=== PATIENT | male | born 1970 | race Caucasian/White ===

== ENCOUNTER 2018-12-02 08:11 | Emergency (ER) | payer MEDICAID ==
[~2018-12-02] VITALS: Ht 172.7 cm; Wt 90.4 kg
[2018-12-02 08:18] VITALS: BP 162/98; PULSE 89; RESP 18; Ht 172.7 cm; Wt 90.4 kg
--- NOTE | 2018-12-02 09:57 | ERD ---
ER Documentation Chief Complaint Chief Complaint DIZZINESS SINCE YESTERDAY HPI 48-year-old male patient with no significant past medical history presents to the ED complaining of dizziness. Patient reports that he is unable to describe his dizziness. States that he wears reading glasses. States that the dizziness is not related to all movements. Reports that he noticed that his blood pressure is slightly higher. States that he has been eating more salty foods. Denies any nausea, vomiting, diarrhea, chest pain, shortness of breath, dyspnea on exertion, orthopnea, wheezing. ROS All systems reviewed and are negative except as per history of present illness. PMhx/Soc Medical and Surgical Hx: pt denies Medical Hx, pt denies Surgical Hx Hx Alcohol Use: No Hx Substance Use: No Hx Tobacco Use: No Smoking Status: Never smoker FmHx Family History: No diabetes, No coronary disease Physical Exam Vitals Vital Signs Date Temp Pulse Resp B/P (MAP) Pulse Ox O2 O2 Flow FiO2 Time Delivery Rate 12/02/18 97.9 89 18 162/98 99 08:18 (119) Physical Exam Const: Hqw-qib-bywbmghnv, well-nourished. In no acute distress. Head: Atraumatic, normocephalic. No hematoma. No eaton sign. Eyes: Normal Conjunctiva without injection. No purulent discharge. PERRLA. EOMI ENT: Normal external ear. Ear canal without erythema. Tympanic membrane pearly gill without effusion or bulging. Nasal canal clear with normal turbinates. Moist oropharynx without tonsillar exudates. Non-erythematous pharynx. Uvula midline. No drooling. No trismus. Neck: No cervical midline tenderness. Full range of motion. No meningismus. No cervical lymphadenopathy. No JVD. Resp: Clear to auscultation bilaterally. No wheezing, rhonchi, rales, or crackles. No accessory muscle use. No retractions. Cardio: Regular rate and rhythm. No murmurs, rubs or gallops. Abd: Soft, non tender, non distended. Normal bowel sounds. No palpable masses. No rebound tenderness. No guarding. Negative McBurney's Point. Negative Palomo 's Sign. Skin: Normal skin turgor. No petechiae or rashes Back: No midline tenderness. No CVA tenderness. Ext: No cyanosis, or edema. Distal pulses intact bilaterally. Neur: Awake and alert. Normal gait. Normal coordination. Cranial Nerves II- VII intact. Normal finger to nose. Muscle strength 5/5. Sensation intact. Psych: Normal Mood and Affect Results 24 hrs Laboratory Tests Test 12/02/18 09:07 Bedside Glucose 136 mg/dL Procedures/MDM 48--year-old male patient with no significant past medical history presents to ED complaining of dizziness. Patient is afebrile and nontoxic-appearing. Patient's blood pressure is 162/98. Blood Pressure Assessment: Patient's blood pressure was elevated (>120/80) but appears stable without evidence of hypertension emergency or urgency. The patient was counseled about the risks of hypertension and urged to pursue outpatient monitoring and therapy within a week with their primary care physician. Accu-Chek 136. EKG reviewed and interpreted by Dr. Kumari Rate/Rhythm: [70 bpm, Normal Sinus Rhythm] No ectopy, no ST elevations, normal axis. QRS, ST, T-waves: [No changes consistent w/ acute ischemia] Impression: [No evidence of ischemia or arrhythmia] Low suspicion for acute myocardial infarction, esophageal rupture, pneumothorax, pneumonia, cardiac tamponade, Rpzkl-Sfygfgtse-Awgis Syndrome, Brugada Syndrome, pulmonary embolism, AAA, aortic dissection, carotid dissection, thoracic aortic dissection, endocarditis, myocarditis, pericarditis, cocaine-related ischemia, Boerhaave's syndrome, cardiac dysrhythmias,meningitis, intracranial bleed, seizure, stroke, TIA or other emergent conditions. Diagnosis: Dizziness Follow up with primary care physician in 1-2 days for management of HTN. Instructed patient to return to the ED sooner for any worsening symptoms. Patient's questions were answered. Patient is hemodynamically stable. Patient understood and agreed with discharge plan. Patient discharged stable. Disclaimer: Inadvertent spelling and grammatical errors are likely due to EHR/dictation software use and do not reflect on the overall quality of patient care. Also, please note that the electronic time recorded on this note does not necessarily reflect the actual time of the patient encounter. Departure Diagnosis: Primary Impression: Dizziness Condition: Stable Patient Instructions: High Blood Pressure (Hypertension), Eating a Low-Salt Diet, Dizziness, Unk Cause Referrals: [facility] Usted se muniz hecho un examen mdico de control que le indica que no est en charity condicin que requiera tratamiento urgente en el Departamento de Emergencia. Un estudio ms profundo y el tratamiento de dennis condicin pueden esperar sin ningn riesgo hasta que usted sea atendida/o en el consultorio de dennis mdico o charity clnica. Es responsabilidad suya arreglar charity dante para el seguimiento del eloise. MANEJO DE CONDICIONES NO URGENTES EN EL FUTURO 1) Si usted tiene un mdico de atencin primaria: Usted debera llamar a dennis mdico de atencin primaria antes de venir al departamento de emergencia. Despus de las horas de consultorio, dennis doctor o dennis asociado/a est disponible por telfono. El mdico o enfermero de malachi en el servicio telefnico puede asesorarle por bakari medio para atender el problema, o eloise contrario se puede programar charity dante. 2) Si usted no tiene un mdico de atencin primaria: Llame al mdico o clnica de referencia que aparece abajo katharina las horas de consultorio para hacer charity dante para que le vean. CLINICAS: [facility] [phone] [facility] 950 [phone] [facility] [phone] [facility] [place] [id number] [phone] [facility] [place] [id number] [phone] [facility]. [phone] [facility] () Usted se muniz hecho un examen mdico de control que le indica que no est en charity condicin que requiera tratamiento urgente en el Departamento de Emergencia. Un estudio ms profundo y el tratamiento de dennis condicin pueden esperar sin ningn riesgo hasta que usted sea atendida/o en el consultorio de dennis mdico o charity clnica. Es responsabilidad suya arreglar charity dante para el seguimiento del eloise. MANEJO DE CONDICIONES NO URGENTES EN EL FUTURO 1) Si usted tiene un mdico de atencin primaria: Usted debera llamar a dennis mdico de atencin primaria antes de venir al departamento de emergencia. Despus de las horas de consultorio, dennis doctor o dennis asociado/a est disponible por telfono. El mdico o enfermero de malachi en el servicio telefnico puede asesorarle por bakari medio para atender el problema, o eloise contrario se puede programar charity dante. 2) Si usted no tiene un mdico de atencin primaria: Llame al mdico o condado institucions de referencia que aparece abajo katharina las horas de consultorio para hacer charity dante para que le vean. SI USTED NO PUEDE PAGAR PARA SILVANA UN MEDICO puede ir a: [facility] [phone] [place] [address] [facility] [address] [place] [address] [facility] [address] [place] [address] [facility] [address] [place] [address] Additional Instructions: Llame al doctor MAANA y carlos charity DANTE PARA DENTRO DE 2-3 BUTT.Dgale a la secretaria que nosotros le instruimos hacer esta dante.Avise o llame si dennis condicin se empeora antes de la dante. Regresa aqui si peor o no mejor. NEISHA GROVES PA-C December 02, 2018 09:57
== END 2018-12-02 10:16 | disposition home or self-care (01) ==
LOC: FTE 08:11
DX: R42 Dizziness and giddiness (principal)
CPT/HCPCS: 82962; 93005; Z7502